=== PATIENT | female | born 1955 | race African-American/Black ===

== ENCOUNTER → 2017-09-01 | Outpatient (CLI) | payer OTHER ==
--- NOTE | 2017-09-01 11:49 | KCIC ---
CT HEAD WO CONTRAST History: Mild cognitive impairment, memory loss, hypertension Comparison: None. Technique: Noncontrast CT imaging was performed of the head. Exposure: One or more of the following individualized dose reduction techniques were utilized for this examination: 1. Automated exposure control 2. Adjustment of the mA and/or kV according to patient size 3. Use of iterative reconstruction technique. Findings: No acute extra-axial or parenchymal hemorrhage is identified. There is no significant intra-axial mass effect, midline shift, or extra-axial fluid collection. The lobato-white differentiation of the major vascular territories is preserved. Ventricular size is considered within normal limits. There is mild generalized supratentorial involutional change. There is mild to moderate ill-defined low-density of the supratentorial white matter bilaterally greatest of the parietal lobes. The mastoid air cells and the visualized paranasal sinuses are aerated. No acute calvarial abnormality is identified. There is atherosclerotic calcification of the carotid siphons bilaterally. Impression: 1. No acute intracranial abnormality is identified. 2. There is mild supratentorial involutional change. 3. Scattered ill-defined low-density of the supratentorial white matter bilaterally is nonspecific, may be due to chronic microvascular ischemic disease given history of hypertension. Electronically signed by: Te Bal MD (09/01/2017 11:47 AM) [id number]
== END | disposition home or self-care (01) ==
LOC: KCIC CT 11:05
PROVIDERS: ATTEND Family Medicine
DX: G31.84 Mild cognitive impairment of uncertain or unknown etiology (principal); I10 Essential (primary) hypertension
CPT/HCPCS: 70450

== ENCOUNTER 2018-09-29 21:38 | Emergency (ER) | payer SELFPAY ==
[~2018-09-29] VITALS: Ht 157.5 cm; Wt 56.7 kg
[2018-09-29 21:45] VITALS: BP 165/118
[2018-09-29] MEDS ORDERED: oxyCODONE/APAP 7.5/325 1 TAB TABLET PO ONE (21:45)
[2018-09-29] MEDS ORDERED: AMOX1TAB61 PO (22:05)
[2018-09-29] MEDS ORDERED: AMOXICILLIN/K CLAV 875/125MG TABLET. PO ONE (22:15)
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
== END 2018-09-29 22:24 | disposition home or self-care (01) ==
LOC: ER 21:38
DX: S61.051A Open bite of right thumb without damage to nail, initial encounter (principal); I10 Essential (primary) hypertension; Y04.1XXA Assault by human bite, initial encounter; Y93.89 Activity, other specified; Y92.89 Other specified places as the place of occurrence of the external cause; Y99.8 Other external cause status
CPT/HCPCS: 73140; 99283